=== PATIENT | male | born 1950 | race Caucasian/White ===

== ENCOUNTER → 2016-12-07 | Outpatient (REF) | payer MEDICARE ==
[~2016-12-07] MED LIST: /SYST15OP OU; ACET50TA PO; ADV250INH INH; ASPI1TAB24 PO; ASPI81TA4 PO; ATEN100T PO; BACIDCA PO; BUDE0.5S6 INH; CIPR500T89 PO; COMBIVENT INH; DRIS1CAP PO; DRIS50002 PO; FISH1000 PO; FISH100035 PO; HYDR25TAB PO; HYDR50TA2 PO; IPRASOL4 IN; LISI-538 PO; LISI5TAB PO; MIRT15TA3 PO; PRED10TA2 PO; SERT-141 PO; SERT50TA PO; TRAM50TA2 PO; TYLE500T78 PO; ULTR50TA PO; ZITH250T PO
[2016-12-07 12:57] LABS: MEAN CORPUSCULAR HEMOGLOBIN 30.2 pg (27.0-33.0); MEAN CORPUSCULAR HGB CONC 32.8 g/dl (32.0-36.5); RED CELL DISTRIBUTION WIDTH 13.2 % (11.5-14.5); WHITE BLOOD COUNT 8.3 K/mm3 (4.0-10.0)
[2016-12-07 13:22] LABS: ALBUMIN 3.7 GM/DL (3.2-5.2); ALBUMIN/GLOBULIN RATIO 1.19 (1.00-1.93); ALKALINE PHOSPHATASE 51 U/L (45-117); ALT/SGPT 29 U/L (12-78); ANION GAP 9 MEQ/L (8-16); AST/SGOT 16 U/L (15-37); BILIRUBIN,TOTAL 0.3 MG/DL (0.2-1.0); BLOOD UREA NITROGEN 20 MG/DL (7-18); CALCIUM LEVEL 8.9 MG/DL (8.8-10.2); CARBON DIOXIDE LEVEL 28 MEQ/L (21-32); CHLORIDE LEVEL 102 MEQ/L (98-107); CHOLESTEROL LEVEL 170 MG/DL (<200); CREATININE FOR GFR 0.89 MG/DL (0.70-1.30); FREE T4 1.13 NG/DL (0.76-1.46); GLOMERULAR FILTRATION RATE > 60.0 (>49); GLUCOSE, FASTING 91 MG/DL (80-110); POTASSIUM SERUM 4.1 MEQ/L (3.5-5.1); SODIUM LEVEL 139 MEQ/L (136-145); TOTAL PROTEIN 6.8 GM/DL (6.4-8.2); TRIGLYCERIDES LEVEL 195 MG/DL (<150)
== END ==
LOC: M SFHCADAM 08:24
PROVIDERS: ATTEND Family Medicine
DX: Z01.818 Encounter for other preprocedural examination (principal); H02.832 Dermatochalasis of right lower eyelid; H02.834 Dermatochalasis of left upper eyelid; H02.423 Myogenic ptosis of bilateral eyelids; F32.9 Major depressive disorder, single episode, unspecified; I11.9 Hypertensive heart disease without heart failure; E78.2 Mixed hyperlipidemia; Z12.5 Encounter for screening for malignant neoplasm of prostate; E55.9 Vitamin D deficiency, unspecified
CPT/HCPCS: 80053; 80061; 82306; 84439; 84443; 85027; G0103; G0463

== ENCOUNTER → 2016-12-19 | Day surgery (SDC) | payer MEDICARE ==
--- NOTE | 2016-12-18 10:36 | HPE ---
DATE OF ADMISSION: 12/19/2016 HISTORY AND CHIEF COMPLAINT: Mr. Apple is a 66-year-old, gentleman who has had a 2-3 year history of drooping of the eyelids, worse in the right eye than the left. The drooping is worse in the evening. He has to raise his eyebrows to open the eyelids. The drooping does not vary during the day. The droopy eyelids is interferring with his vision. 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 He has been admitted to have the levator aponeurosis resection, advancement and reattachment and blepharoplasty of both upper eyelids under local anesthetic with monitored sedation. PAST OCULAR HISTORY: Please see history of present illness, senile ectropion both lower eyelids, hypertensive retinopathy both eyes, pinguecula both eyes, dry eye syndrome both eyes. PAST MEDICAL HISTORY AND PREOPERATIVE MEDICAL EVALUATION: Please see the report by Dr. Vinayak Leyva. Hypertension, depression, chronic obstructive pulmonary disease (COPD), back pain, enlarged prostate, high cholesterol, impaired fasting glucose, pancreatitis, diverticulosis, hiatal hernia. Sleep apnea. MEDICATIONS: Please refer to the report by Dr. Vinayak Leyva. - aspirin 81 mg - Extra Strength Tylenol - Systane eye drops - oxygen 2 liters per minute - Zoloft - lisinopril - budesonide - albuterol inhaler - mirtazapine - hydrochlorothiazide - tramadol - Drisdol ALLERGIES: Please refer to the report by Dr. Vinayak Leyva, LATEX, PENICILLIN. FAMILY HISTORY: Positive for cataract and glaucoma with respect to eye disease on paternal side and cataract on maternal side. SOCIAL HISTORY: Please refer to the report by Dr. Vinayak Leyva. Smoker. On examination, vision without correction: Right eye: 20/30 +2, left eye: 20/30. Intraocular pressure by Goldmann tonometry: Both eyes: 16 mmHg. Pupils: Both eyes: Round, regular and reactive to light, 3 mm. Extraocular movements: Both eyes: Full, orthophoric on cover testing. External examination: Both eyes: Use of frontalis muscle +++. Involutional dermatochalasis upper eyelids and lower eyelids both eyes, margin to brow skin measurement: Right eye: 32 mm, left eye: 30 mm. 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 No lid lagophthalmos present. Myogenic ptosis upper eyelids both eyes. Marginal reflex distance: Right eye: 0 mm, left eye: 1 mm. Levator function: Both eyes: 12 mm. Sanz's phenomenon positive. Senile ectropion both lower eyelids. Slit lamp examination: Cornea: Both eyes: 1+ superficial punctate keratitis. Anterior chamber: Both eyes: Normal. Iris: Both eyes: Normal. Lens: Both eyes: Clear. Fundal examination: Disc: Both eyes: Normal. Macular: Both eyes: Normal. Visual arenas: Ptosis. Untaped superior visual field shows 30 degrees superior loss bilaterally. Taped superior visual field shows full visual arenas superiorly. IMPRESSION: 1. Myogenic ptosis upper eyelids both eyes, interfering with vision and visual field. 2. Involutional dermatochalasis upper and lower eyelids both eyes. 3. Senile ectropion both lower eyelids. 4. Floppy eyelid syndrome both eyes. PLAN: I discussed the findings with Mr. Apple. I mentioned to him that the drooping of the upper eyelids worse in the right eye than the left is interfering with the vision and the visual field. I recommended a levator aponeurosis resection, advancement and reattachment of both upper eyelids and a blepharoplasty of both upper eyelids. I discussed with him the procedure, benefit, expected outcomes, risks and alternatives to surgery. I mentioned that the risk of surgery includes but is not limited to surgery is not guaranteed, bleeding, infection, inflammation, scarring, overcorrection, undercorrection, recurrence, injury to the globe, extraocular muscles and the orbit causing impaired vision, impaired eye movement and vision. Mr. Apple elected to have the said surgery performed. I obtained an informed consent. I advised him to stop any aspirin type products and nonsteroidal anti-inflammatory medications [address] Vinayak Leyva will recommend his other preoperative and postoperative medications. [facility]
[~2016-12-19] VITALS: Ht 180.3 cm; Wt 192.8 kg
[~2016-12-19] MED LIST changes: +BUPIVACAINE 0.75% 10 ML VIAL As Ordered ONE; +CIPROFLOXACIN OPHTH 0.3% OINTMENT As Ordered ONE; +D5W/0.2% SODIUM CHLORIDE 250 ML IV ONE; +HYALURONIDASE 200 UNITS/ML VIAL (J3470) As Ordered ONE; +LABETALOL HCL 100 MG/20 ML VIAL As Ordered ONE; +LIDOCAINE 1% MDV 20ML VIAL As Ordered ONE; +LIDOCAINE 2% INJ 100 MG/5 ML SDV (FOR ANES.) As Ordered ONE; +LIDOCAINE W/EPINEPHRINE 1% 20ML VIAL As Ordered ONE; +MIDAZOLAM INJ 2 MG/2 ML VIAL (J2250) As Ordered ONE; +POVIDONE-IODINE 5% OPHTH PREP SOL 30ML As Ordered ONE; +PROPOFOL 200 MG/20 ML VIAL As Ordered ONE; +SODIUM BICARBONATE 8.4% INJ 50MEQ 50 ML VIAL As Ordered ONE; +TOBRADEX OPHTH OINT 3.5 GM As Ordered ONE; +dexameTHASONE 4 MG/ML 1ML VIAL (J1100) As Ordered ONE; +dexameTHASONE 4 MG/ML 1ML VIAL (J1100) IV ONE; +fentaNYL 100 MCG/2 ML INJECTION (J3010) As Ordered ONE
--- NOTE | 2016-12-19 09:29 | RO ---
DATE OF PROCEDURE: 12/19/2016 ROOM: Operating room. SURGEON: Jaswinder Reynolds MD [employer]: PREOPERATIVE DIAGNOSIS: 1. Myogenic ptosis upper eyelid both eyes, affecting vision and visual field. 2. Involutional dermatochalasis upper eyelid both eyes. POSTOPERATIVE DIAGNOSIS: 1. Myogenic ptosis upper eyelid both eyes, affecting vision and visual field. 2. Involutional dermatochalasis upper eyelid both eyes, fatty infiltration of levator muscle, Herings phenomenon positive. ANESTHESIA: Local with monitored sedation. OPERATIVE PROCEDURE: 1. Levator aponeurosis resection, advancement and reattachment of upper eyelid, both eyes. 2. Blepharoplasty upper eyelid, both eyes. DESCRIPTION OF OPERATION: The patient was brought into the operating room and positioned appropriately. A surgical marking pen was used to addie the upper lid crease height at 7 mm using a pair of calipers and then the upper incision line was marked leaving 20 mm of skin from the eyebrow to the lash line for both eyes. After adequate sedation, local anesthetic consisting of Xylocaine 1% mixed 50/50 with Marcaine 0.75% and epinephrine 1:200,000 with 0.5 mL of 8.4% sodium bicarbonate and 200 units of Vitrase per 10 mL of local anesthetic, 2.25 mL was injected subcutaneously along the incision lines and superior border of the tarsus of both upper eyelids. The full face was prepped with Betadine and draped in the usual sterile manner. A 6-0 silk traction suture was placed at the lid margin just nasal to the pupil for both upper eyelids. Both upper eyelids were retracted inferiorly. Starting with the right eye then followed by the left eye the skin incisions were made with a #15 blade. Good hemostasis was ensured throughout the procedure using bipolar cautery. The orbicularis muscle was identified and incised at the temporal margin and then dissected down to the suborbicularis plane for both upper eyelids. The myocutaneous flap was then excised from temporal to medial. The orbital septum was identified and incised just inferior to the superior orbital rim and the incision was extended medially and laterally. The medial and central orbital fat pads were identified and retracted to reveal the levator muscle and aponeurosis which was detached from its normal position on the superior tarsus for both upper eyelids. The levator muscle had fatty infiltration in both upper eyelids. The superior surface of the tarsus was exposed. A double-armed 5-0 nylon suture was used to reattach the levator aponeurosis to the tarsus for both upper eyelids. The sutures were tied temporarily. The patient was sat up and the lid margin contour and marginal reflex distance was checked for both upper eyelids. The 5-0 nylon suture was adjusted until the marginal reflex distance was 3 mm for both upper eyelids. The patient was then placed supine and the 5-0 nylon suture was tied and cut. Hemostasis was checked. The skin and orbicularis layer was then closed with interrupted and continuous 6-0 plain suture for both upper eyelids. There were no complications during the surgery. At the end of the procedure, a combination of Ciloxan ophthalmic ointment mixed with TobraDex ophthalmic ointment was applied to the incision and the sutures. A cold saline compress was placed over the closed both upper eyelid. The patient left for the recovery room in good condition. Specimens were sent to pathology. [facility]
[2016-12-19 10:15] VITALS: BP 133/71
== END | disposition home or self-care (01) ==
LOC: M SDC 06:23
PROVIDERS: ATTEND Ophthalmology
DX: H02.423 Myogenic ptosis of bilateral eyelids (principal); H02.834 Dermatochalasis of left upper eyelid; H02.831 Dermatochalasis of right upper eyelid; H02.135 Senile ectropion of left lower eyelid; H02.132 Senile ectropion of right lower eyelid; H02.89 Other specified disorders of eyelid; H35.033 Hypertensive retinopathy, bilateral; H04.123 Dry eye syndrome of bilateral lacrimal glands; H11.153 Pinguecula, bilateral; I11.9 Hypertensive heart disease without heart failure; J44.9 Chronic obstructive pulmonary disease, unspecified; E74.9 Disorder of carbohydrate metabolism, unspecified; E55.9 Vitamin D deficiency, unspecified; Z68.44 Body mass index [BMI] 60.0-69.9, adult; E78.00 Pure hypercholesterolemia, unspecified; R73.01 Impaired fasting glucose; F32.9 Major depressive disorder, single episode, unspecified; N40.0 Benign prostatic hyperplasia without lower urinary tract symptoms; G47.30 Sleep apnea, unspecified; M54.9 Dorsalgia, unspecified; K57.90 Diverticulosis of intestine, part unspecified, without perforation or abscess without bleeding; M19.90 Unspecified osteoarthritis, unspecified site; Z88.8 Allergy status to other drugs, medicaments and biological substances; Z88.0 Allergy status to penicillin; Z91.040 Latex allergy status; Z79.899 Other long term (current) drug therapy; Z79.82 Long term (current) use of aspirin; Z79.51 Long term (current) use of inhaled steroids; F17.210 Nicotine dependence, cigarettes, uncomplicated
CPT/HCPCS: 15823; 67904; 88302; J1100; J2250; J3010; J3470

== ENCOUNTER → 2017-04-18 | Outpatient (CLI) | payer MEDICARE ==
[~2017-04-18] MED LIST changes: +ASPI-161 PO; -ASPI1TAB24 PO; -BUPIVACAINE 0.75% 10 ML VIAL As Ordered ONE; -CIPROFLOXACIN OPHTH 0.3% OINTMENT As Ordered ONE; -D5W/0.2% SODIUM CHLORIDE 250 ML IV ONE; -HYALURONIDASE 200 UNITS/ML VIAL (J3470) As Ordered ONE; -LABETALOL HCL 100 MG/20 ML VIAL As Ordered ONE; -LIDOCAINE 1% MDV 20ML VIAL As Ordered ONE; -LIDOCAINE 2% INJ 100 MG/5 ML SDV (FOR ANES.) As Ordered ONE; -LIDOCAINE W/EPINEPHRINE 1% 20ML VIAL As Ordered ONE; -MIDAZOLAM INJ 2 MG/2 ML VIAL (J2250) As Ordered ONE; -POVIDONE-IODINE 5% OPHTH PREP SOL 30ML As Ordered ONE; -PROPOFOL 200 MG/20 ML VIAL As Ordered ONE; -SODIUM BICARBONATE 8.4% INJ 50MEQ 50 ML VIAL As Ordered ONE; -TOBRADEX OPHTH OINT 3.5 GM As Ordered ONE; -dexameTHASONE 4 MG/ML 1ML VIAL (J1100) As Ordered ONE; -dexameTHASONE 4 MG/ML 1ML VIAL (J1100) IV ONE; -fentaNYL 100 MCG/2 ML INJECTION (J3010) As Ordered ONE
--- NOTE | 2017-04-18 11:51 | REP ---
Clinical: Right hip pain. Technique: Neutral and frog lateral views of the right hip. Findings: The patient is noted to be status post right hip replacement. Normal appearance and positioning to the femoral and acetabular components. No acute fracture or dislocation. Surrounding soft tissues are normal. Impression: Normal right hip radiograph series. No acute fracture dislocation. Signed by Jah Wright MD 04/18/2017 11:43 A
--- NOTE | 2017-04-18 11:52 | REP ---
Clinical: Left rib pain Technique: Frontal view of the chest with multiple views of the left hemithorax. Findings: Frontal view of the chest demonstrates no acute cardiopulmonary process. Multiple views of the left hemithorax demonstrates no obvious acute rib fracture or pathology. Impression: Normal left rib series Signed by Jah Wright MD 04/18/2017 11:44 A
== END ==
LOC: M ADAMS 09:21
PROVIDERS: ATTEND Family Medicine
DX: R07.81 Pleurodynia (principal); Z96.641 Presence of right artificial hip joint; I11.9 Hypertensive heart disease without heart failure; E78.2 Mixed hyperlipidemia; E32.9 Disease of thymus, unspecified; E74.9 Disorder of carbohydrate metabolism, unspecified; J44.9 Chronic obstructive pulmonary disease, unspecified; Z68.44 Body mass index [BMI] 60.0-69.9, adult; F17.200 Nicotine dependence, unspecified, uncomplicated; Z12.5 Encounter for screening for malignant neoplasm of prostate
CPT/HCPCS: 71101; 73502; 80048; 82495; 83018; G0463

== ENCOUNTER → 2017-04-18 | Outpatient (REF) | payer MEDICARE ==
[2017-04-19 13:37] LABS: ANION GAP 8 MEQ/L (8-16); BLOOD UREA NITROGEN 19 MG/DL (7-18); CALCIUM LEVEL 9.3 MG/DL (8.8-10.2); CARBON DIOXIDE LEVEL 30 MEQ/L (21-32); CHLORIDE LEVEL 102 MEQ/L (98-107); CREATININE FOR GFR 0.89 MG/DL (0.70-1.30); GLOMERULAR FILTRATION RATE > 60.0 (>49); GLUCOSE, FASTING 100 MG/DL (80-110); POTASSIUM SERUM 4.2 MEQ/L (3.5-5.1); SODIUM LEVEL 140 MEQ/L (136-145)
[2017-05-05 08:16] LABS: CHROMIUM, WB 5.1 ng/mL (<3.0); COBALT, WB 24.6 ng/mL (<3.0)
== END ==
LOC: M SFHCADAM 09:15
PROVIDERS: ATTEND Family Medicine
DX: I11.9 Hypertensive heart disease without heart failure (principal); F32.9 Major depressive disorder, single episode, unspecified; R07.81 Pleurodynia; E78.2 Mixed hyperlipidemia; E74.9 Disorder of carbohydrate metabolism, unspecified; J44.9 Chronic obstructive pulmonary disease, unspecified; F17.200 Nicotine dependence, unspecified, uncomplicated; Z12.5 Encounter for screening for malignant neoplasm of prostate; Z96.641 Presence of right artificial hip joint; Z79.82 Long term (current) use of aspirin; Z79.899 Other long term (current) drug therapy

== ENCOUNTER → 2017-09-01 | Outpatient (REF) | payer MEDICARE ==
[2017-09-01 13:31] LABS: HEMATOCRIT 41.1 % (42.0-52.0); HEMOGLOBIN 13.4 g/dl (14.0-18.0); MEAN CORPUSCULAR HEMOGLOBIN 29.6 pg (27.0-33.0); MEAN CORPUSCULAR HGB CONC 32.6 g/dl (32.0-36.5); MEAN CORPUSCULAR VOLUME 90.7 fl (80.0-96.0); PLATELET COUNT, AUTOMATED 196 10^3/uL (150-450); RED BLOOD COUNT 4.53 10^6/uL (4.30-6.10); RED CELL DISTRIBUTION WIDTH 13.1 % (11.5-14.5); WHITE BLOOD COUNT 6.7 10^3/uL (4.0-10.0)
[2017-09-01 14:11] LABS: ALBUMIN 3.8 GM/DL (3.2-5.2); ALBUMIN/GLOBULIN RATIO 1.19 (1.00-1.93); ALKALINE PHOSPHATASE 51 U/L (45-117); ALT/SGPT 28 U/L (12-78); ANION GAP 10 MEQ/L (8-16); AST/SGOT 16 U/L (7-37); BILIRUBIN,TOTAL 0.4 MG/DL (0.2-1.0); BLOOD UREA NITROGEN 22 MG/DL (7-18); CALCIUM LEVEL 9.1 MG/DL (8.8-10.2); CARBON DIOXIDE LEVEL 27 MEQ/L (21-32); CHLORIDE LEVEL 103 MEQ/L (98-107); CHOLESTEROL LEVEL 159 MG/DL (<200); CHOLESTEROL RISK RATIO 3.975 (<5); CREATININE FOR GFR 0.92 MG/DL (0.70-1.30); FREE T4 1.19 NG/DL (0.76-1.46); GLOMERULAR FILTRATION RATE > 60.0 (>49); GLUCOSE, FASTING 112 MG/DL (80-110); HDL CHOLESTEROL 40 MG/DL (>40); LDL CHOLESTEROL 94.8 MG/DL (<100); NON-HDL-C 119 MG/DL; POTASSIUM SERUM 4.2 MEQ/L (3.5-5.1); SODIUM LEVEL 140 MEQ/L (136-145); THYROID STIMULATING HORMONE 0.816 uIU/ML (0.358-3.740); TRIGLYCERIDES LEVEL 121 MG/DL (<150)
[2017-09-01 15:21] LABS: ESTIMATED AVERAGE GLUCOSE 117 MG/DL (60-110); HEMOGLOBIN A1c 5.7 %
== END ==
LOC: M SFHCADAM 10:06
DX: F32.9 Major depressive disorder, single episode, unspecified (principal); I11.9 Hypertensive heart disease without heart failure; E74.9 Disorder of carbohydrate metabolism, unspecified; E78.2 Mixed hyperlipidemia; R73.01 Impaired fasting glucose
CPT/HCPCS: 84443

== ENCOUNTER → 2018-10-25 | Outpatient (REF) | payer MEDICARE ==
[~2018-10-25] MED LIST changes: -DRIS50002 PO; +DRIS50003 PO; +IPRA0.00 IN; -IPRASOL4 IN
[2018-10-25 12:35] LABS: HEMATOCRIT 43.5 % (42.0-52.0); HEMOGLOBIN 14.3 g/dl (13.5-17.5); MEAN CORPUSCULAR HEMOGLOBIN 29.9 pg (27.0-33.0); MEAN CORPUSCULAR HGB CONC 32.9 g/dl (32.0-36.5); PLATELET COUNT, AUTOMATED 209 10^3/uL (150-450); RED BLOOD COUNT 4.78 10^6/uL (4.30-6.10); WHITE BLOOD COUNT 8.1 10^3/uL (4.0-10.0)
[2018-10-25 13:20] LABS: ALBUMIN 4.1 GM/DL (3.2-5.2); ALT/SGPT 30 U/L (12-78); BILIRUBIN,TOTAL 0.4 MG/DL (0.2-1.0); BLOOD UREA NITROGEN 23 MG/DL (7-18); CALCIUM LEVEL 9.5 MG/DL (8.8-10.2); CARBON DIOXIDE LEVEL 28 MEQ/L (21-32); CHLORIDE LEVEL 103 MEQ/L (98-107); CHOLESTEROL LEVEL 180 MG/DL (<200); CREATININE FOR GFR 0.96 MG/DL (0.70-1.30); GLOMERULAR FILTRATION RATE > 60.0 (>49); GLUCOSE, FASTING 92 MG/DL (70-100); HDL CHOLESTEROL 41 MG/DL (>40); LDL CHOLESTEROL 115 MG/DL (<100); NON-HDL-C 139 MG/DL; POTASSIUM SERUM 4.9 MEQ/L (3.5-5.1); SODIUM LEVEL 139 MEQ/L (136-145); TOTAL 25(OH) VITAMIN D 44.2 NG/ML (30.0-100.0); TOTAL PROTEIN 7.3 GM/DL (6.4-8.2); TRIGLYCERIDES LEVEL 118 MG/DL (<150)
[2018-10-25 13:27] LABS: HEMOGLOBIN A1c 5.5 %
== END ==
LOC: M SFHCADAM 10:08
PROVIDERS: ATTEND Family Medicine
DX: F32.9 Major depressive disorder, single episode, unspecified (principal); I11.9 Hypertensive heart disease without heart failure; E74.9 Disorder of carbohydrate metabolism, unspecified; E78.2 Mixed hyperlipidemia; Z12.5 Encounter for screening for malignant neoplasm of prostate; E55.9 Vitamin D deficiency, unspecified
CPT/HCPCS: 80053; 80061; 82306; 83036; 85027; G0103; G0463

== ENCOUNTER → 2019-05-09 | Outpatient (CLI) | payer MEDICARE ==
[~2019-05-09] MED LIST changes: -/SYST15OP OU; -ACET50TA PO; +MAPA500T17 PO; -SERT50TA PO; +SYST1SOL OU
--- NOTE | 2019-05-09 12:37 | REP ---
PA and lateral chest four views including two PA and two lateral views: Comparison is 06/05/2014. The lung arenas are hyperinflated, as previously. There are thin curvilinear parenchymal scars inferiorly in the right lung, unchanged. There are no infiltrates or pleural effusions. Lung arenas otherwise clear. Cardiac size is normal. The macario, mediastinum, skeletal structures are unremarkable. Impression: Chronic hyperinflation. Chronic parenchymal scarring in the right lung inferiorly. Otherwise, negative PA and lateral chest. Electronically Signed by Bradford Miller MD 05/09/2019 12:28 P
== END ==
LOC: M ADAMS 12:04
PROVIDERS: ATTEND Physician Assistant Medical
DX: R06.02 Shortness of breath (principal)
CPT/HCPCS: 71046; 94640; 96372; G0463; J1040

== ENCOUNTER → 2019-10-22 | Outpatient (REF) | payer MEDICARE ==
[2019-10-22 13:26] LABS: HEMATOCRIT 43.5 % (42.0-52.0); MEAN CORPUSCULAR HEMOGLOBIN 29.5 pg (27.0-33.0); MEAN CORPUSCULAR HGB CONC 32.2 g/dl (32.0-36.5); MEAN CORPUSCULAR VOLUME 91.8 fl (80.0-96.0); PLATELET COUNT, AUTOMATED 196 10^3/uL (150-450); RED BLOOD COUNT 4.74 10^6/uL (4.30-6.10); WHITE BLOOD COUNT 6.6 10^3/uL (4.0-10.0)
[2019-10-22 14:09] LABS: ALBUMIN 3.8 GM/DL (3.2-5.2); ALT/SGPT 32 U/L (12-78); BILIRUBIN,TOTAL 0.4 MG/DL (0.2-1.0); BLOOD UREA NITROGEN 23 MG/DL (7-18); CALCIUM LEVEL 8.9 MG/DL (8.8-10.2); CARBON DIOXIDE LEVEL 31 MEQ/L (21-32); CHLORIDE LEVEL 103 MEQ/L (98-107); CHOLESTEROL LEVEL 170 MG/DL (<200); CHOLESTEROL RISK RATIO 4.722 (<5); CREATININE FOR GFR 0.84 MG/DL (0.70-1.30); FREE T4 1.21 NG/DL (0.76-1.46); GLOMERULAR FILTRATION RATE > 60.0 (>49); GLUCOSE, FASTING 95 MG/DL (70-100); HDL CHOLESTEROL 36 MG/DL (>40); LDL CHOLESTEROL 99 MG/DL (<100); NON-HDL-C 134 MG/DL; POTASSIUM SERUM 4.2 MEQ/L (3.5-5.1); SODIUM LEVEL 139 MEQ/L (136-145); THYROID STIMULATING HORMONE 0.937 uIU/ML (0.358-3.740); TOTAL PROTEIN 6.9 GM/DL (6.4-8.2); TRIGLYCERIDES LEVEL 174 MG/DL (<150)
== END ==
LOC: M SFHCADAM 08:47
PROVIDERS: ATTEND Family Medicine
DX: I11.9 Hypertensive heart disease without heart failure (principal); J44.9 Chronic obstructive pulmonary disease, unspecified; F32.9 Major depressive disorder, single episode, unspecified; E78.2 Mixed hyperlipidemia; Z68.44 Body mass index [BMI] 60.0-69.9, adult; Z12.5 Encounter for screening for malignant neoplasm of prostate
CPT/HCPCS: 80053; 80061; 84439; 84443; 85027; G0103; G0463

== ENCOUNTER → 2021-10-29 | Outpatient (CLI) | payer MEDICARE ==
[~2021-10-29] MED LIST changes: +HYDR-3490 PO; -HYDR25TAB PO; -LISI-538 PO; +LISI20TA33 PO
== END ==
LOC: M RAD 09:45
PROVIDERS: ATTEND Internal Medicine Pulmonary Disease
DX: Z87.891 Personal history of nicotine dependence (principal)

== ENCOUNTER → 2022-05-18 | Outpatient (REF) | payer MEDICARE ==
[2022-05-18 13:21] LABS: HEMATOCRIT 46.3 % (42.0-52.0); MEAN CORPUSCULAR HEMOGLOBIN 30.1 pg (27.0-33.0); MEAN CORPUSCULAR HGB CONC 32.4 g/dl (32.0-36.5); MEAN CORPUSCULAR VOLUME 92.8 fl (80.0-96.0); PLATELET COUNT, AUTOMATED 218 10^3/uL (150-450); RED BLOOD COUNT 4.99 10^6/uL (4.30-6.10); WHITE BLOOD COUNT 8.9 10^3/uL (4.0-10.0)
[2022-05-18 15:20] LABS: ALBUMIN 3.9 GM/DL (3.2-5.2); ALT/SGPT 30 U/L (12-78); BILIRUBIN,TOTAL 0.5 MG/DL (0.2-1.0); BLOOD UREA NITROGEN 22 MG/DL (7-18); CALCIUM LEVEL 9.8 MG/DL (8.8-10.2); CARBON DIOXIDE LEVEL 28 MEQ/L (21-32); CHLORIDE LEVEL 101 MEQ/L (98-107); CHOLESTEROL LEVEL 192 MG/DL (<200); CHOLESTEROL RISK RATIO 4.465 (<5); CREATININE FOR GFR 0.98 MG/DL (0.70-1.30); FREE T4 1.19 NG/DL (0.76-1.46); GLOMERULAR FILTRATION RATE > 60.0 (>42); GLUCOSE, FASTING 105 MG/DL (70-100); HDL CHOLESTEROL 43 MG/DL (>40); LDL CHOLESTEROL 120 MG/DL (<100); NON-HDL-C 149 MG/DL; POTASSIUM SERUM 4.7 MEQ/L (3.5-5.1); SODIUM LEVEL 134 MEQ/L (136-145); TOTAL PROTEIN 7.4 GM/DL (6.4-8.2); TRIGLYCERIDES LEVEL 145 MG/DL (<150)
[2022-05-18 15:36] LABS: HEMOGLOBIN A1c 5.2 %
[2022-05-18 17:00] LABS: TOTAL 25(OH) VITAMIN D 52.4 NG/ML (30.0-100.0)
== END ==
LOC: M SFHCADAM 09:44
PROVIDERS: ATTEND Family Medicine
DX: F32.9 Major depressive disorder, single episode, unspecified (principal); I11.9 Hypertensive heart disease without heart failure; E78.2 Mixed hyperlipidemia; E55.9 Vitamin D deficiency, unspecified; Z13.1 Encounter for screening for diabetes mellitus; Z12.5 Encounter for screening for malignant neoplasm of prostate; Z79.891 Long term (current) use of opiate analgesic
CPT/HCPCS: 80053; 80061; 80307; 82306; 83036; 84439; 84443; 85027; G0103

== ENCOUNTER → 2022-06-15 | Outpatient (CLI) | payer MEDICARE | LOC: M CARPUL 13:55 | PROVIDERS: ATTEND Family Medicine | DX: R01.1 Cardiac murmur, unspecified (principal) ==

== ENCOUNTER → 2022-11-23 | Outpatient (REF) | payer MEDICARE ==
[2022-11-23 13:24] LABS: BLOOD UREA NITROGEN 18 MG/DL (9-23); CALCIUM LEVEL 9.2 MG/DL (8.3-10.6); CARBON DIOXIDE LEVEL 30 MMOL/L (20-31); CHLORIDE LEVEL 102 MMOL/L (98-107); CREATININE FOR GFR 0.84 MG/DL (0.70-1.30); GLOMERULAR FILTRATION RATE > 60.0 (>42); GLUCOSE, FASTING 87 MG/DL (74-106); SODIUM LEVEL 137 MMOL/L (136-145)
== END ==
LOC: M SFHCADAM 10:48
PROVIDERS: ATTEND Family Medicine
DX: I11.9 Hypertensive heart disease without heart failure (principal)

== ENCOUNTER → 2022-12-23 | Outpatient (CLI) | payer MEDICARE | LOC: M RAD 13:07 | PROVIDERS: ATTEND Internal Medicine Pulmonary Disease | DX: Z12.2 Encounter for screening for malignant neoplasm of respiratory organs (principal); F17.218 Nicotine dependence, cigarettes, with other nicotine-induced disorders ==

== ENCOUNTER 2023-02-06 10:42 | Inpatient (IN) | payer MEDICARE ==
[~2023-02-06] VITALS: Ht 177.8 cm; Wt 175.6 kg
[~2023-02-06 10:42] MED LIST changes: -IPRA0.00 IN; +IPRA0.00 NEB
[2023-02-06 11:58] LABS: BASO % 0.6 % (0.0-1.0); EOS # 0.1 10^3/uL (0.0-0.5); EOS % 2.4 % (0.0-3.0); HEMATOCRIT 40.7 % (42.0-52.0); HEMOGLOBIN 13.2 g/dl (13.5-17.5); LYMPH # 1.5 10^3/uL (1.5-5.0); LYMPH % 28.3 % (24.0-44.0); MEAN CORPUSCULAR HEMOGLOBIN 29.7 pg (27.0-33.0); MEAN CORPUSCULAR HGB CONC 32.4 g/dl (32.0-36.5); MEAN CORPUSCULAR VOLUME 91.5 fl (80.0-96.0); MONO # 0.3 10^3/uL (0.0-0.8); MONO % 5.9 % (2.0-8.0); NEUTROPHILS # 3.4 10^3/uL (1.5-8.5); NEUTROPHILS % 62.6 % (36.0-66.0); PLATELET COUNT, AUTOMATED 166 10^3/uL (150-450); RED BLOOD COUNT 4.45 10^6/uL (4.30-6.10); WHITE BLOOD COUNT 5.4 10^3/uL (4.0-10.0)
[2023-02-06 12:20] LABS: ALBUMIN 3.6 G/DL (3.2-5.2); ALKALINE PHOSPHATASE 58 U/L (46-116); ALT/SGPT 18 U/L (7.0-40); AST/SGOT 12 U/L (<34); BILIRUBIN,DIRECT 0.2 MG/DL (<0.4); BILIRUBIN,TOTAL 0.6 MG/DL (0.3-1.2); BLOOD UREA NITROGEN 21 MG/DL (9-23); CARBON DIOXIDE LEVEL 29 MMOL/L (20-31); CHLORIDE LEVEL 106 MMOL/L (98-107); CK-MB VALUE MASS 1.2 NG/ML (<3.6); CPK CREATINE PHOSPHOKINASE 83 U/L (46-171); CREATININE FOR GFR 0.86 MG/DL (0.70-1.30); GLOMERULAR FILTRATION RATE > 60.0 (>42); GLUCOSE, FASTING 92 MG/DL (74-106); MB/CK RELATIVE INDEX 1.44 (< OR =4); POTASSIUM SERUM 3.8 MMOL/L (3.5-5.1); SODIUM LEVEL 141 MMOL/L (136-145); TOTAL PROTEIN 6.3 G/DL (5.7-8.2)
[2023-02-06 12:22] LABS: THYROID STIMULATING HORMONE 1.078 uIU/ML (0.55-4.78); THYROXINE (T4) 12.4 UG/DL (4.5-10.9)
[2023-02-06 12:28] LABS: RSV AMPLIFICATION NEGATIVE (NEGATIVE)
[2023-02-06] MEDS ORDERED: FUROSEMIDE 40MG/4ML VIAL IV ONE (12:40)
[2023-02-06] MEDS ORDERED: methylPREDNISolone 125MG 2ML VIAL IV ONE (12:40)
[2023-02-06] MEDS ORDERED: IPRATROPIUM 0.5MG/ALBUTEROL 2.5MG INH SOL UD 3ML (DUONEB) NEB PRN (12:40)
[2023-02-06 13:10] LABS: CK-MB VALUE MASS 1.3 NG/ML (<3.6)
[2023-02-06 13:16] LABS: MB/CK RELATIVE INDEX 1.71 (< OR =4)
[2023-02-06 13:23] LABS: ABG HCO3 26.8 MMOL/L (22.0-26.0); ABG O2 SATURATION 92.5 % (95.0-99.0); ABG PARTIAL PRESSURE CO2 42.7 mmHg (35.0-45.0); ABG PARTIAL PRESSURE O2 61.7 mmHg (75.0-100.0); ABG STANDARD HCO3 26.1 MMOL/L. (22.0-26.0); ABG TOTAL CO2 28.1 MMOL/L (23.0-31.0); ABG pH (ARTERIAL) 7.416 UNITS (7.350-7.450)
[2023-02-06] MEDS ORDERED: MED REC IN PROGRESS XX SCH (14:00)
[2023-02-06] MEDS ORDERED: MIRT-62 PO (14:20)
[2023-02-06] MEDS ORDERED: ACET500T15 PO (14:20)
[2023-02-06] MEDS ORDERED: TAMS1CAP17 PO (14:20)
[2023-02-06] MEDS ORDERED: ACET-839 PO (14:20)
[2023-02-06] MEDS ORDERED: ERGO500029 PO (14:20)
[2023-02-06] MEDS ORDERED: ZOLO100T PO (14:20)
[2023-02-06] MEDS ORDERED: ASPI81TA26 PO (14:20)
[2023-02-06] MEDS ORDERED: HOME MED LIST COMPLETE! XX SCH (14:25)
[2023-02-06] MEDS: IPRATROPIUM 0.5MG/ALBUTEROL 2.5MG INH SOL UD 3ML (DUONEB) NEB SCH ×2 (14:47→21:08)
[2023-02-06 16:15] VITALS: BP 157/78; TEMP 97.7; O2SAT 92
[2023-02-06 16:37] LABS: PROCALCITONIN <0.04 ng/ml
[2023-02-06] MEDS: methylPREDNISolone 40MG 1ML VIAL IV SCH (18:10)
[2023-02-06] MEDS: AZITHROMYCIN 250MG TABLET PO SCH (18:11)
[2023-02-06 19:39] VITALS: BP 122/73; TEMP 97.2; O2SAT 94
[2023-02-06] MEDS ORDERED: BUDESONIDE 180MCG INHALER (PULMICORT FLEXHALER) INH SCH (20:00)
[2023-02-06] MEDS: MIRTAZAPINE 15 MG TAB PO SCH (20:40)
[2023-02-06] MEDS: ACETAMINOPHEN 500 MG TAB PO SCH (20:41)
[2023-02-06] MEDS: TAMSULOSIN 0.4 MG CAP PO SCH (20:42)
[2023-02-06] MEDS: SERTRALINE 100 MG TAB PO SCH (20:42)
[2023-02-06] MEDS: traMADol 50 MG TAB PO SCH (20:42)
[2023-02-06] MEDS: ENOXAPARIN 60MG/0.6ML SYRINGE (J1650 PER 10MG) SC SCH (20:42)
[2023-02-06] MEDS: BUDESONIDE 0.5 MG/2 ML INHALATION SUSPENSION INH SCH (21:08)
[2023-02-07] MEDS ORDERED: FUROSEMIDE 40MG/4ML VIAL IV SCH
[2023-02-07] MEDS: methylPREDNISolone 40MG 1ML VIAL IV SCH ×3 (00:01→13:29)
[2023-02-07] MEDS: IPRATROPIUM 0.5MG/ALBUTEROL 2.5MG INH SOL UD 3ML (DUONEB) NEB SCH ×7 (01:24→23:59)
[2023-02-07 05:27] VITALS: BP 114/71; TEMP 98.1; O2SAT 93
[2023-02-07 06:05] LABS: HEMATOCRIT 42.6 % (42.0-52.0); HEMOGLOBIN 13.9 g/dl (13.5-17.5); MEAN CORPUSCULAR HEMOGLOBIN 29.9 pg (27.0-33.0); MEAN CORPUSCULAR HGB CONC 32.6 g/dl (32.0-36.5); MEAN CORPUSCULAR VOLUME 91.6 fl (80.0-96.0); PLATELET COUNT, AUTOMATED 174 10^3/uL (150-450); RED BLOOD COUNT 4.65 10^6/uL (4.30-6.10); WHITE BLOOD COUNT 5.6 10^3/uL (4.0-10.0)
[2023-02-07 06:22] LABS: BLOOD UREA NITROGEN 24 MG/DL (9-23); CALCIUM LEVEL 9.1 MG/DL (8.3-10.6); CARBON DIOXIDE LEVEL 28 MMOL/L (20-31); CHLORIDE LEVEL 102 MMOL/L (98-107); CREATININE FOR GFR 0.84 MG/DL (0.70-1.30); GLOMERULAR FILTRATION RATE > 60.0 (>42); GLUCOSE, FASTING 131 MG/DL (74-106); MAGNESIUM LEVEL 1.8 MG/DL (1.8-2.4); POTASSIUM SERUM 3.9 MMOL/L (3.5-5.1); SODIUM LEVEL 140 MMOL/L (136-145)
[2023-02-07] MEDS: BUDESONIDE 0.5 MG/2 ML INHALATION SUSPENSION INH SCH ×2 (07:35→20:26)
[2023-02-07] MEDS ORDERED: ALBUTEROL SULFATE 2.5MG/0.5ML INH NEB SOLN NEB PRN (07:50)
[2023-02-07] MEDS ORDERED: VANCOMYCIN HCL 1,000 MG, VIAL MATE ADAPTER 1 EACH in D5W 250 ML IV ONE ×2 (08:00→09:00)
[2023-02-07] MEDS: ACETAMINOPHEN 500 MG TAB PO SCH ×2 (08:45→21:34)
[2023-02-07 08:46] VITALS: BP 107/53
[2023-02-07] MEDS: ENOXAPARIN 60MG/0.6ML SYRINGE (J1650 PER 10MG) SC SCH ×2 (08:46→21:32)
[2023-02-07] MEDS: SERTRALINE 100 MG TAB PO SCH ×2 (08:46→21:34)
[2023-02-07] MEDS: ASPIRIN 81MG ENTERIC TABLET PO SCH (08:46)
[2023-02-07] MEDS: traMADol 50 MG TAB PO SCH ×2 (08:46→21:34)
[2023-02-07] MEDS ORDERED: ENOXAPARIN 40MG/0.4ML SYRINGE (J1650 PER 10MG) SC SCH (09:00)
[2023-02-07] MEDS: FUROSEMIDE 40MG/4ML VIAL IV SCH ×3 (11:26→23:35)
[2023-02-07 11:28] VITALS: BP 101/60
[2023-02-07 14:00] VITALS: BP 120/60; TEMP 98.1; O2SAT 91; O2SAT 93
[2023-02-07] MEDS ORDERED: methylPREDNISolone 40MG 1ML VIAL IV SCH (14:00)
[2023-02-07] MEDS: VANCOMYCIN HCL 1,000 MG, VIAL MATE ADAPTER 1 EACH in D5W 250 ML IV SCH (17:06)
[2023-02-07] MEDS: AZITHROMYCIN 250MG TABLET PO SCH (17:07)
[2023-02-07 19:34] VITALS: BP 118/67; TEMP 98.2; O2SAT 93
[2023-02-07] MEDS: TAMSULOSIN 0.4 MG CAP PO SCH (21:33)
[2023-02-07] MEDS: RAMELTEON 8 MG TAB (ROZEREM) PO SCH (21:34)
[2023-02-07] MEDS: MIRTAZAPINE 15 MG TAB PO SCH (21:34)
[2023-02-08] MEDS: VANCOMYCIN HCL 1,000 MG, VIAL MATE ADAPTER 1 EACH in D5W 250 ML IV SCH ×3 (00:48→17:33)
[2023-02-08] MEDS: methylPREDNISolone 40MG 1ML VIAL IV SCH ×2 (02:12→13:08)
[2023-02-08] MEDS: IPRATROPIUM 0.5MG/ALBUTEROL 2.5MG INH SOL UD 3ML (DUONEB) NEB SCH ×6 (03:16→23:30)
[2023-02-08 06:28] LABS: HEMATOCRIT 42.7 % (42.0-52.0); HEMOGLOBIN 13.7 g/dl (13.5-17.5); MEAN CORPUSCULAR HEMOGLOBIN 29.4 pg (27.0-33.0); MEAN CORPUSCULAR HGB CONC 32.1 g/dl (32.0-36.5); MEAN CORPUSCULAR VOLUME 91.6 fl (80.0-96.0); PLATELET COUNT, AUTOMATED 187 10^3/uL (150-450); RED BLOOD COUNT 4.66 10^6/uL (4.30-6.10); WHITE BLOOD COUNT 9.6 10^3/uL (4.0-10.0)
[2023-02-08 06:42] LABS: ALBUMIN 3.8 G/DL (3.2-5.2); ALKALINE PHOSPHATASE 53 U/L (46-116); ALT/SGPT < 9 U/L (7.0-40); AST/SGOT < 8 U/L (<34); BILIRUBIN,TOTAL 0.6 MG/DL (0.3-1.2); BLOOD UREA NITROGEN 41 MG/DL (9-23); CALCIUM LEVEL 9.2 MG/DL (8.3-10.6); CARBON DIOXIDE LEVEL 31 MMOL/L (20-31); CHLORIDE LEVEL 101 MMOL/L (98-107); CREATININE FOR GFR 1.05 MG/DL (0.70-1.30); GLOMERULAR FILTRATION RATE > 60.0 (>42); GLUCOSE, FASTING 105 MG/DL (74-106); POTASSIUM SERUM 3.9 MMOL/L (3.5-5.1); SODIUM LEVEL 140 MMOL/L (136-145); TOTAL PROTEIN 6.4 G/DL (5.7-8.2)
[2023-02-08] MEDS: BUDESONIDE 0.5 MG/2 ML INHALATION SUSPENSION INH SCH ×2 (07:32→19:15)
[2023-02-08] MEDS: SERTRALINE 100 MG TAB PO SCH ×2 (08:45→20:06)
[2023-02-08] MEDS: ASPIRIN 81MG ENTERIC TABLET PO SCH (08:45)
[2023-02-08] MEDS: traMADol 50 MG TAB PO SCH ×2 (08:45→20:07)
[2023-02-08] MEDS: ACETAMINOPHEN 500 MG TAB PO SCH ×2 (08:46→20:06)
[2023-02-08] MEDS: ENOXAPARIN 60MG/0.6ML SYRINGE (J1650 PER 10MG) SC SCH ×2 (08:46→20:07)
[2023-02-08] MEDS: FUROSEMIDE 40MG/4ML VIAL IV SCH (13:08)
[2023-02-08 14:00] VITALS: BP 96/32; TEMP 98.1; O2SAT 91
[2023-02-08 14:14] VITALS: BP 98/50
[2023-02-08] MEDS: AZITHROMYCIN 250MG TABLET PO SCH (17:33)
[2023-02-08] MEDS: TAMSULOSIN 0.4 MG CAP PO SCH (20:06)
[2023-02-08] MEDS: MIRTAZAPINE 15 MG TAB PO SCH (20:06)
[2023-02-08] MEDS: RAMELTEON 8 MG TAB (ROZEREM) PO SCH (20:08)
[2023-02-08 22:00] VITALS: BP 110/57; TEMP 98.2; O2SAT 94
[2023-02-08 22:36] VITALS: TEMP 98.1
[2023-02-09 00:29] VITALS: BP 112/44
[2023-02-09] MEDS: VANCOMYCIN HCL 1,000 MG, VIAL MATE ADAPTER 1 EACH in D5W 250 ML IV SCH (00:37)
[2023-02-09] MEDS: FUROSEMIDE 40MG/4ML VIAL IV SCH (00:37)
[2023-02-09] MEDS: IPRATROPIUM 0.5MG/ALBUTEROL 2.5MG INH SOL UD 3ML (DUONEB) NEB SCH ×2 (04:14→07:25)
[2023-02-09 06:00] VITALS: BP 130/70; TEMP 97.5; O2SAT 91
[2023-02-09 06:03] LABS: HEMATOCRIT 44.3 % (42.0-52.0); HEMOGLOBIN 13.9 g/dl (13.5-17.5); MEAN CORPUSCULAR HEMOGLOBIN 29.5 pg (27.0-33.0); MEAN CORPUSCULAR HGB CONC 31.4 g/dl (32.0-36.5); MEAN CORPUSCULAR VOLUME 94.1 fl (80.0-96.0); PLATELET COUNT, AUTOMATED 195 10^3/uL (150-450); RED BLOOD COUNT 4.71 10^6/uL (4.30-6.10); WHITE BLOOD COUNT 9.4 10^3/uL (4.0-10.0)
[2023-02-09 06:19] LABS: ALBUMIN 3.9 G/DL (3.2-5.2); ALKALINE PHOSPHATASE 52 U/L (46-116); ALT/SGPT 21 U/L (7.0-40); AST/SGOT 27 U/L (<34); BILIRUBIN,TOTAL 0.6 MG/DL (0.3-1.2); BLOOD UREA NITROGEN 38 MG/DL (9-23); CARBON DIOXIDE LEVEL 31 MMOL/L (20-31); CHLORIDE LEVEL 102 MMOL/L (98-107); CREATININE FOR GFR 0.91 MG/DL (0.70-1.30); GLOMERULAR FILTRATION RATE > 60.0 (>42); GLUCOSE, FASTING 84 MG/DL (74-106); POTASSIUM SERUM 3.5 MMOL/L (3.5-5.1); SODIUM LEVEL 138 MMOL/L (136-145); TOTAL PROTEIN 6.9 G/DL (5.7-8.2)
[2023-02-09] MEDS: BUDESONIDE 0.5 MG/2 ML INHALATION SUSPENSION INH SCH (07:24)
[2023-02-09] MEDS ORDERED: predniSONE 20 MG TAB PO SCH (09:00)
[2023-02-09] MEDS: ENOXAPARIN 60MG/0.6ML SYRINGE (J1650 PER 10MG) SC SCH ×2 (09:00→09:28)
[2023-02-09] MEDS ORDERED: LASI40TA9 PO (09:02)
[2023-02-09] MEDS ORDERED: PRED20TA PO (09:02)
[2023-02-09] MEDS: traMADol 50 MG TAB PO SCH (09:27)
[2023-02-09] MEDS: SERTRALINE 100 MG TAB PO SCH (09:28)
[2023-02-09] MEDS: ACETAMINOPHEN 500 MG TAB PO SCH (09:28)
[2023-02-09] MEDS: ASPIRIN 81MG ENTERIC TABLET PO SCH (09:28)
== END 2023-02-09 11:04 | disposition home or self-care (01) | DRG 291 ==
LOC: M ED 10:42 → M ED INP 14:08 → ENRESERV 15:28 → M MSPAV 16:20
PROVIDERS: ADMIT Internal Medicine; ATTEND Internal Medicine
PROC: B246ZZZ Ultrasonography of Right and Left Heart (ICD-10-PCS; principal; 2023-02-09)
DX: I11.0 Hypertensive heart disease with heart failure (principal); J96.01 Acute respiratory failure with hypoxia; I50.33 Acute on chronic diastolic (congestive) heart failure; J44.1 Chronic obstructive pulmonary disease with (acute) exacerbation; Z68.43 Body mass index [BMI] 50.0-59.9, adult; G47.33 Obstructive sleep apnea (adult) (pediatric); E04.1 Nontoxic single thyroid nodule; F39 Unspecified mood [affective] disorder; R91.1 Solitary pulmonary nodule; F17.200 Nicotine dependence, unspecified, uncomplicated; E78.5 Hyperlipidemia, unspecified; N40.0 Benign prostatic hyperplasia without lower urinary tract symptoms; I27.81 Cor pulmonale (chronic); R73.03 Prediabetes; E29.1 Testicular hypofunction; N52.9 Male erectile dysfunction, unspecified; E66.9 Obesity, unspecified; Z90.49 Acquired absence of other specified parts of digestive tract; Z96.649 Presence of unspecified artificial hip joint; Z79.82 Long term (current) use of aspirin; Z79.899 Other long term (current) drug therapy; Z88.0 Allergy status to penicillin; Z88.8 Allergy status to other drugs, medicaments and biological substances; Z91.040 Latex allergy status

== ENCOUNTER → 2023-04-19 | Outpatient (REF) | payer MEDICARE ==
[~2023-04-19] MED LIST changes: +ACET-839 PO; +ACET500T15 PO; +ASPI81TA26 PO; +ERGO500029 PO; +LASI40TA9 PO; +MIRT-88 PO; +PRED20TA PO; +TAMS1CAP17 PO; +ZOLO100T PO
[2023-04-19 13:40] LABS: HEMATOCRIT 44.1 % (42.0-52.0); HEMOGLOBIN 13.6 g/dl (13.5-17.5); MEAN CORPUSCULAR HEMOGLOBIN 28.9 pg (27.0-33.0); MEAN CORPUSCULAR HGB CONC 30.8 g/dl (32.0-36.5); MEAN CORPUSCULAR VOLUME 93.8 fl (80.0-96.0); PLATELET COUNT, AUTOMATED 178 10^3/uL (150-450); WHITE BLOOD COUNT 5.1 10^3/uL (4.0-10.0)
[2023-04-19 13:56] LABS: HEMOGLOBIN A1c 5.1 % (4.0-6.0)
[2023-04-19 14:15] LABS: ALBUMIN 3.5 G/DL (3.2-5.2); ALKALINE PHOSPHATASE 64 U/L (46-116); ALT/SGPT 16 U/L (7.0-40); AST/SGOT 15 U/L (<34); BILIRUBIN,TOTAL 0.6 MG/DL (0.3-1.2); BLOOD UREA NITROGEN 18 MG/DL (9-23); CALCIUM LEVEL 9.4 MG/DL (8.3-10.6); CARBON DIOXIDE LEVEL 33 MMOL/L (20-31); CHLORIDE LEVEL 102 MMOL/L (98-107); CHOLESTEROL LEVEL 168 MG/DL (<200); CHOLESTEROL RISK RATIO 4.44 (<5); CREATININE FOR GFR 0.78 MG/DL (0.70-1.30); GLOMERULAR FILTRATION RATE > 60.0 (>42); GLUCOSE, FASTING 91 MG/DL (74-106); HDL CHOLESTEROL 37.8 MG/DL (>40); LDL CHOLESTEROL 108.2 MG/DL (<100); NON-HDL-C 130.2 MG/DL; POTASSIUM SERUM 4.2 MMOL/L (3.5-5.1); SODIUM LEVEL 143 MMOL/L (136-145); TOTAL PROTEIN 6.2 G/DL (5.7-8.2); TRIGLYCERIDES LEVEL 110 MG/DL (<150)
[2023-04-19 14:18] LABS: THYROID STIMULATING HORMONE 0.933 uIU/ML (0.55-4.78)
[2023-04-19 14:22] LABS: FREE T4 1.31 NG/DL (0.89-1.76)
== END ==
LOC: M SFHCADAM 07:51
PROVIDERS: ATTEND Family Medicine
DX: F32.9 Major depressive disorder, single episode, unspecified (principal); E78.2 Mixed hyperlipidemia; E74.9 Disorder of carbohydrate metabolism, unspecified; Z68.43 Body mass index [BMI] 50.0-59.9, adult; Z12.5 Encounter for screening for malignant neoplasm of prostate
CPT/HCPCS: 80053; 80061; 83036; 84439; 84443; 85027; G0103

== ENCOUNTER → 2023-10-25 | Outpatient (REF) | payer MEDICARE ==
[~2023-10-25] MED LIST changes: -ASPI-161 PO; +ASPI-615 PO
== END ==
LOC: M SFHCADAM 13:59
PROVIDERS: ATTEND Family Medicine
DX: K52.9 Noninfective gastroenteritis and colitis, unspecified (principal)

== ENCOUNTER → 2023-11-17 | Outpatient (CLI) | payer MEDICARE | LOC: M RAD 13:15 | PROVIDERS: ATTEND Family Medicine | DX: K86.81 Exocrine pancreatic insufficiency (principal); T56.891D Toxic effect of other metals, accidental (unintentional), subsequent encounter; T56.2X Toxic effects of chromium and its compounds; R16.1 Splenomegaly, not elsewhere classified; K76.0 Fatty (change of) liver, not elsewhere classified ==

== ENCOUNTER → 2024-02-06 | Outpatient (CLI) | payer MEDICARE | LOC: M RAD 09:33 | PROVIDERS: ATTEND Internal Medicine Pulmonary Disease | DX: Z87.891 Personal history of nicotine dependence (principal) ==

== ENCOUNTER → 2024-04-23 | Outpatient (REF) | payer MEDICARE ==
[2024-04-23 18:09] LABS: HEMOGLOBIN 13.5 g/dl (13.5-17.5); MEAN CORPUSCULAR HEMOGLOBIN 29.7 pg (27.0-33.0); MEAN CORPUSCULAR HGB CONC 32.1 g/dl (32.0-36.5); MEAN CORPUSCULAR VOLUME 92.3 fl (80.0-96.0); PLATELET COUNT, AUTOMATED 199 10^3/uL (150-450); RED BLOOD COUNT 4.55 10^6/uL (4.30-6.10)
[2024-04-23 18:10] LABS: APPEARANCE, URINE TURBID (CLEAR); BACTERIA, URINE AUTO NEGATIVE (NEGATIVE); BILIRUBIN, URINE AUTO NEGATIVE (NEGATIVE); BLOOD, URINE BLOOD 3+ (NEGATIVE); CALCIUM OXALATE CRYSTALS MODERATE; COLOR, URINE AMBER (YELLOW); GLUCOSE, URINE (UA) AUTO NEGATIVE (NEGATIVE); KETONE, URINE AUTO NEGATIVE (NEGATIVE); LEUKOCYTE ESTERASE, URINE AUTO 1+ (NEGATIVE); MUCUS, URINE LARGE (NEGATIVE); NITRITE, URINE AUTO NEGATIVE (NEGATIVE); PROTEIN, URINE AUTO 1+ mg/dL (NEGATIVE); RBC, URINE AUTO 0 /HPF (0-3); SPECIFIC GRAVITY URINE AUTO 1.025 (1.002-1.035); SQUAMOUS EPITHELIAL CELL UR AU 1 /HPF (0-6); UROBILINOGEN, URINE AUTO 0.2 mg/dL (0.0-2.0); WBC, URINE AUTO 10 /HPF (0-3)
[2024-04-23 18:32] LABS: PSA SCREENING 3.39 NG/ML (< 4.00)
[2024-04-23 18:33] LABS: ALBUMIN 3.2 G/DL (3.2-5.2); ALKALINE PHOSPHATASE 71 U/L (46-116); ALT/SGPT 14 U/L (7.0-40); AST/SGOT 13 U/L (<34); BILIRUBIN,TOTAL 0.4 MG/DL (0.3-1.2); BLOOD UREA NITROGEN 20 MG/DL (9-23); CALCIUM LEVEL 9.4 MG/DL (8.3-10.6); CARBON DIOXIDE LEVEL 30 MMOL/L (20-31); CHLORIDE LEVEL 107 MMOL/L (98-107); CHOLESTEROL LEVEL 140 MG/DL (<200); CHOLESTEROL RISK RATIO 4.87 (<5); CREATININE FOR GFR 0.67 MG/DL (0.70-1.30); GLOMERULAR FILTRATION RATE > 60.0 (>42); GLUCOSE, FASTING 87 MG/DL (74-106); HDL CHOLESTEROL 28.7 MG/DL (>40); LDL CHOLESTEROL 88.5 MG/DL (<100); NON-HDL-C 111.3 MG/DL; SODIUM LEVEL 142 MMOL/L (136-145); TOTAL PROTEIN 6.3 G/DL (5.7-8.2); TRIGLYCERIDES LEVEL 114 MG/DL (<150)
[2024-04-23 18:36] LABS: FREE T4 1.35 NG/DL (0.89-1.76); THYROID STIMULATING HORMONE 0.627 uIU/ML (0.55-4.78)
== END ==
LOC: M SFHCADAM 12:00
PROVIDERS: ATTEND Family Medicine
DX: K52.9 Noninfective gastroenteritis and colitis, unspecified (principal); I11.9 Hypertensive heart disease without heart failure; E78.2 Mixed hyperlipidemia; E74.9 Disorder of carbohydrate metabolism, unspecified; Z12.5 Encounter for screening for malignant neoplasm of prostate; R39.198 Other difficulties with micturition; Z79.899 Other long term (current) drug therapy
CPT/HCPCS: 80053; 80061; 81001; 83036; 84439; 84443; 85027; 87086; G0103

== ENCOUNTER → 2024-06-11 | Outpatient (REF) | payer MEDICARE | LOC: M LABDRWAD 17:39 | PROVIDERS: ATTEND Orthopaedic Surgery Adult Reconstructive Orthopaedic Surgery | DX: T56.2X Toxic effects of chromium and its compounds (principal) ==

== ENCOUNTER → 2024-08-02 | Outpatient (REF) | payer MEDICARE ==
[2024-08-02 12:58] LABS: ALBUMIN 3.5 G/DL (3.2-5.2); ALKALINE PHOSPHATASE 83 U/L (40-129); ALT/SGPT 16 U/L (7.0-40); AST/SGOT 16 U/L (<34); BILIRUBIN,TOTAL 0.5 MG/DL (0.3-1.2); BLOOD UREA NITROGEN 26 MG/DL (9-23); C REACTIVE PROTEIN QUANTITATIV < 0.50 MG/DL (<1.0); CALCIUM LEVEL 9.8 MG/DL (8.3-10.6); CARBON DIOXIDE LEVEL 28 MMOL/L (20-31); CHLORIDE LEVEL 102 MMOL/L (98-107); CREATININE FOR GFR 0.79 MG/DL (0.70-1.30); GLOMERULAR FILTRATION RATE > 60.0 (>42); GLUCOSE, FASTING 92 MG/DL (74-106); POTASSIUM SERUM 4.9 MMOL/L (3.5-5.1); SODIUM LEVEL 139 MMOL/L (136-145); TOTAL PROTEIN 7.1 G/DL (5.7-8.2)
[2024-08-02 13:02] LABS: HEMATOCRIT 44.2 % (42.0-52.0); HEMOGLOBIN 14.3 g/dl (13.5-17.5); MEAN CORPUSCULAR HEMOGLOBIN 29.4 pg (27.0-33.0); MEAN CORPUSCULAR HGB CONC 32.4 g/dl (32.0-36.5); MEAN CORPUSCULAR VOLUME 90.8 fl (80.0-96.0); PLATELET COUNT, AUTOMATED 177 10^3/uL (150-450); RED BLOOD COUNT 4.87 10^6/uL (4.30-6.10); TOTAL 25(OH) VITAMIN D 69.9 NG/ML (20.0-100.0); WHITE BLOOD COUNT 6.3 10^3/uL (4.0-10.0)
== END ==
LOC: M SFHCADAM 08:54
PROVIDERS: ATTEND Family Medicine
DX: M54.31 Sciatica, right side (principal); E55.9 Vitamin D deficiency, unspecified; I11.9 Hypertensive heart disease without heart failure; K86.81 Exocrine pancreatic insufficiency

== ENCOUNTER → 2024-08-02 | Outpatient (CLI) | payer MEDICARE | LOC: M ADAMS 08:58 | PROVIDERS: ATTEND Family Medicine | DX: M54.31 Sciatica, right side (principal) ==

== ENCOUNTER 2024-09-25 10:08 | Inpatient (IN) | payer MEDICARE ==
[~2024-09-25] VITALS: Ht 177.8 cm; Wt 150.0 kg
[2024-09-25 11:33] LABS: BASO % 0.2 % (0.0-1.0); EOS # 0.1 10^3/uL (0.0-0.5); EOS % 1.2 % (0.0-3.0); HEMATOCRIT 38.3 % (42.0-52.0); HEMOGLOBIN 12.5 g/dl (13.5-17.5); LYMPH # 1.3 10^3/uL (1.5-5.0); LYMPH % 23.3 % (24.0-44.0); MEAN CORPUSCULAR HEMOGLOBIN 29.5 pg (27.0-33.0); MEAN CORPUSCULAR HGB CONC 32.6 g/dl (32.0-36.5); MEAN CORPUSCULAR VOLUME 90.3 fl (80.0-96.0); MONO # 0.3 10^3/uL (0.0-0.8); MONO % 5.4 % (2.0-8.0); NEUTROPHILS % 69.2 % (36.0-66.0); PLATELET COUNT, AUTOMATED 185 10^3/uL (150-450); RED BLOOD COUNT 4.24 10^6/uL (4.30-6.10); WHITE BLOOD COUNT 5.8 10^3/uL (4.0-10.0)
[2024-09-25 12:17] LABS: ALBUMIN 3.1 G/DL (3.2-5.2); ALKALINE PHOSPHATASE 75 U/L (40-129); ALT/SGPT 16 U/L (7.0-40); AST/SGOT 20 U/L (<34); BILIRUBIN,DIRECT 0.3 MG/DL (<0.4); BILIRUBIN,TOTAL 0.7 MG/DL (0.3-1.2); BLOOD UREA NITROGEN 17 MG/DL (9-23); CALCIUM LEVEL 8.5 MG/DL (8.3-10.6); CARBON DIOXIDE LEVEL 30 MMOL/L (20-31); CHLORIDE LEVEL 101 MMOL/L (98-107); CREATININE FOR GFR 0.62 MG/DL (0.70-1.30); GLOMERULAR FILTRATION RATE > 60.0 (>42); GLUCOSE, FASTING 83 MG/DL (74-106); POTASSIUM SERUM 3.8 MMOL/L (3.5-5.1); SODIUM LEVEL 141 MMOL/L (136-145); TOTAL PROTEIN 6.5 G/DL (5.7-8.2)
[2024-09-25] MEDS: dexAMETHasone 20MG/5ML VIAL IV ONE (14:25)
[2024-09-25] MEDS: COMBIVENT RESPIMAT 100-20MCG INHALER 4GM INH SCH ×2 (14:48→16:12)
[2024-09-25] MEDS ORDERED: BUDE0.5S6 NEB (15:07)
[2024-09-25] MEDS ORDERED: HOME MED LIST COMPLETE! XX SCH (15:10)
[2024-09-25] MEDS ORDERED: MOM 30ML SUSPENSION UDC PO PRN (15:20)
[2024-09-25] MEDS ORDERED: ACETAMINOPHEN 325 MG TAB PO PRN (15:20)
[2024-09-25] MEDS ORDERED: ISOVUE-370 76% 100ML VIAL As Ordered ONE (15:21)
[2024-09-25] MEDS ORDERED: BUDESONIDE 0.5 MG/2 ML INHALATION SUSPENSION NEB PRN (15:30)
[2024-09-25 15:58] LABS: VENOUS HCO3 31.3 MMOL/L (23.0-27.0); VENOUS O2 SATURATION 60.2 % (60.0-80.0); VENOUS PARTIAL PRESSURE CO2 58.7 mmHg (38.0-50.0); VENOUS PARTIAL PRESSURE O2 30.6 mmHg (30.0-50.0); VENOUS PH 7.345 UNITS (7.330-7.430); VENOUS STANDARD HCO3 27.1 MMOL/L; VENOUS TOTAL CO2 33.1 MMOL/L (24.0-28.0)
[2024-09-25 16:17] LABS: PARTIAL THROMBOPLASTIN TIME 28.7 SECONDS (24.8-34.2); PROTHROMBIN TIME 13.5 SECONDS (12.5-14.5)
[2024-09-25 16:27] LABS: C REACTIVE PROTEIN QUANTITATIV 3.58 MG/DL (<1.0)
[2024-09-25 16:34] LABS: PROCALCITONIN 0.07 ng/ml
[2024-09-25] MEDS: REMDESIVIR 200 MG in NS 250 ML IV ONE (18:40)
[2024-09-25] MEDS: RIVAROXABAN 10MG TAB (XARELTO) PO SCH (18:40)
[2024-09-25 20:24] VITALS: BP 145/71; TEMP 97; O2SAT 93
[2024-09-25 22:00] VITALS: O2SAT 3; O2SAT 93
[2024-09-25] MEDS: DOCUSATE SODIUM 100MG CAPSULE PO SCH (22:03)
[2024-09-25] MEDS: MIRTAZAPINE 15 MG TAB PO SCH (22:03)
[2024-09-25] MEDS: traMADol 50 MG TAB PO SCH (22:04)
[2024-09-25] MEDS: TAMSULOSIN 0.4 MG CAP PO SCH (22:04)
[2024-09-25] MEDS: ACETAMINOPHEN 500 MG TAB PO SCH (22:05)
[2024-09-25] MEDS: SERTRALINE 100 MG TAB PO SCH (22:05)
[2024-09-26 04:00] VITALS: BP 157/80; TEMP 97.2; O2SAT 93
[2024-09-26 04:31] VITALS: O2SAT 91
[2024-09-26 05:58] LABS: HEMOGLOBIN 12.3 g/dl (13.5-17.5); MEAN CORPUSCULAR HEMOGLOBIN 28.9 pg (27.0-33.0); MEAN CORPUSCULAR HGB CONC 32.4 g/dl (32.0-36.5); MEAN CORPUSCULAR VOLUME 89.2 fl (80.0-96.0); PLATELET COUNT, AUTOMATED 206 10^3/uL (150-450); RED BLOOD COUNT 4.26 10^6/uL (4.30-6.10); WHITE BLOOD COUNT 4.2 10^3/uL (4.0-10.0)
[2024-09-26 06:45] LABS: BLOOD UREA NITROGEN 18 MG/DL (9-23); CALCIUM LEVEL 9.2 MG/DL (8.3-10.6); CARBON DIOXIDE LEVEL 28 MMOL/L (20-31); CHLORIDE LEVEL 104 MMOL/L (98-107); CREATININE FOR GFR 0.58 MG/DL (0.70-1.30); GLOMERULAR FILTRATION RATE > 60.0 (>42); GLUCOSE, FASTING 116 MG/DL (74-106); POTASSIUM SERUM 4.3 MMOL/L (3.5-5.1); SODIUM LEVEL 141 MMOL/L (136-145)
[2024-09-26] MEDS ORDERED: ENOXAPARIN 40MG/0.4ML SYRINGE (J1650 PER 10MG) SC SCH (09:00)
[2024-09-26] MEDS: ASPIRIN 81MG ENTERIC TABLET PO SCH (09:45)
[2024-09-26] MEDS: ACETAMINOPHEN 500 MG TAB PO SCH (09:45)
[2024-09-26 12:00] VITALS: BP 126/69; TEMP 98.1; O2SAT 89
[2024-09-26] MEDS: REMDESIVIR 100 MG in NS 100 ML IV SCH (17:33)
[2024-09-26 21:05] VITALS: BP 140/73; TEMP 98.1; O2SAT 91
[2024-09-27 04:30] VITALS: BP 129/81; TEMP 97.7; O2SAT 93
[2024-09-27 06:07] LABS: HEMOGLOBIN 12.3 g/dl (13.5-17.5); MEAN CORPUSCULAR HEMOGLOBIN 28.9 pg (27.0-33.0); MEAN CORPUSCULAR HGB CONC 32.4 g/dl (32.0-36.5); MEAN CORPUSCULAR VOLUME 89.4 fl (80.0-96.0); PLATELET COUNT, AUTOMATED 225 10^3/uL (150-450); RED BLOOD COUNT 4.25 10^6/uL (4.30-6.10); WHITE BLOOD COUNT 6.5 10^3/uL (4.0-10.0)
[2024-09-27 06:22] LABS: BLOOD UREA NITROGEN 23 MG/DL (9-23); CALCIUM LEVEL 9.2 MG/DL (8.3-10.6); CARBON DIOXIDE LEVEL 29 MMOL/L (20-31); CHLORIDE LEVEL 106 MMOL/L (98-107); CREATININE FOR GFR 0.66 MG/DL (0.70-1.30); GLOMERULAR FILTRATION RATE > 60.0 (>42); GLUCOSE, FASTING 94 MG/DL (74-106); POTASSIUM SERUM 3.8 MMOL/L (3.5-5.1); SODIUM LEVEL 143 MMOL/L (136-145)
[2024-09-27 08:54] VITALS: BP 87/61
[2024-09-27 12:00] VITALS: BP 142/62; TEMP 97.7; O2SAT 93
[2024-09-27] MEDS ORDERED: PRED10TA2 PO (14:07)
[2024-09-27] MEDS ORDERED: NIRM1TAB14 PO (14:07)
[2024-09-27] MEDS ORDERED: METO25TA PO (14:09)
[2024-09-27] MEDS ORDERED: PRED20TA PO (14:09)
[2024-09-27] MEDS ORDERED: ALBU8.5H INH (14:09)
[2024-09-27] MEDS ORDERED: DOXY-440 PO (14:09)
[2024-09-28] MEDS ORDERED: VITAMIN D 50,000 UNITS CAPSULE (ERGOCALCIFEROL 1.25MG) PO SCH (09:00)
== END 2024-09-27 16:17 | disposition home health service (06) | DRG 178 ==
LOC: EDBD 10:08 → M ED 10:08 → M ED INP 15:11 → M MSPAV 20:06
PROVIDERS: ADMIT Student in an Organized Health Care Education/Training Program; ATTEND General Practice
DX: U07.1 COVID-19 (principal); J96.11 Chronic respiratory failure with hypoxia; K86.1 Other chronic pancreatitis; E66.2 Morbid (severe) obesity with alveolar hypoventilation; Z68.41 Body mass index [BMI] 40.0-44.9, adult; J44.9 Chronic obstructive pulmonary disease, unspecified; E04.1 Nontoxic single thyroid nodule; I10 Essential (primary) hypertension; E78.5 Hyperlipidemia, unspecified; N40.0 Benign prostatic hyperplasia without lower urinary tract symptoms; R73.03 Prediabetes; N52.9 Male erectile dysfunction, unspecified; M54.50 Low back pain, unspecified; F17.200 Nicotine dependence, unspecified, uncomplicated; K57.90 Diverticulosis of intestine, part unspecified, without perforation or abscess without bleeding; Z90.49 Acquired absence of other specified parts of digestive tract; G89.29 Other chronic pain; M54.9 Dorsalgia, unspecified; F32.A Depression, unspecified; Z88.0 Allergy status to penicillin; Z88.8 Allergy status to other drugs, medicaments and biological substances; Z91.040 Latex allergy status; Z79.82 Long term (current) use of aspirin; Z79.891 Long term (current) use of opiate analgesic; Z79.899 Other long term (current) drug therapy; Z99.81 Dependence on supplemental oxygen

== ENCOUNTER → 2024-10-10 | Outpatient (REF) | payer MEDICARE ==
[~2024-10-10] MED LIST changes: +ALBU8.5H INH; +BUDE0.5S6 NEB; +DOXY-440 PO; +METO25TA PO; +NIRM1TAB14 PO
[2024-10-10 18:49] LABS: ALBUMIN 3.5 G/DL (3.2-5.2); ALKALINE PHOSPHATASE 68 U/L (40-129); ALT/SGPT 41 U/L (7.0-40); AST/SGOT 23 U/L (<34); BILIRUBIN,TOTAL 0.5 MG/DL (0.3-1.2); BLOOD UREA NITROGEN 21 MG/DL (9-23); CALCIUM LEVEL 9.4 MG/DL (8.3-10.6); CARBON DIOXIDE LEVEL 29 MMOL/L (20-31); CHLORIDE LEVEL 100 MMOL/L (98-107); GLOMERULAR FILTRATION RATE > 60.0 (>42); GLUCOSE, FASTING 93 MG/DL (74-106); POTASSIUM SERUM 4.3 MMOL/L (3.5-5.1); SODIUM LEVEL 136 MMOL/L (136-145); TOTAL PROTEIN 6.8 G/DL (5.7-8.2)
[2024-10-10 18:52] LABS: FREE T4 1.45 NG/DL (0.89-1.76)
[2024-10-10 18:53] LABS: THYROID STIMULATING HORMONE 0.682 uIU/ML (0.55-4.78)
[2024-10-10 19:01] LABS: BASO % 0.2 % (0.0-1.0); EOS # 0.1 10^3/uL (0.0-0.5); EOS % 0.5 % (0.0-3.0); HEMATOCRIT 43.4 % (42.0-52.0); HEMOGLOBIN 14.1 g/dl (13.5-17.5); LYMPH # 2.3 10^3/uL (1.5-5.0); LYMPH % 22.5 % (24.0-44.0); MEAN CORPUSCULAR HGB CONC 32.5 g/dl (32.0-36.5); MEAN CORPUSCULAR VOLUME 92.3 fl (80.0-96.0); MONO # 0.7 10^3/uL (0.0-0.8); MONO % 6.4 % (2.0-8.0); NEUTROPHILS # 7.2 10^3/uL (1.5-8.5); NEUTROPHILS % 69.9 % (36.0-66.0); PLATELET COUNT, AUTOMATED 177 10^3/uL (150-450); WHITE BLOOD COUNT 10.2 10^3/uL (4.0-10.0)
== END ==
LOC: M SFHCADAM 11:03
PROVIDERS: ATTEND Physician Assistant
DX: I11.9 Hypertensive heart disease without heart failure (principal)

== ENCOUNTER → 2025-05-22 | Outpatient (REF) | payer MEDICARE ==
[~2025-05-22] MED LIST changes: -NIRM1TAB14 PO; +NIRM1TAB16 PO
[2025-05-22 14:50] LABS: CALCIUM LEVEL 9.1 MG/DL (8.3-10.6); CARBON DIOXIDE LEVEL 33 MMOL/L (20-31); CHLORIDE LEVEL 104 MMOL/L (98-107); CREATININE FOR GFR 0.74 MG/DL (0.70-1.30); GLOMERULAR FILTRATION RATE > 90.0 (>42); POTASSIUM SERUM 4.3 MMOL/L (3.5-5.1); SODIUM LEVEL 145 MMOL/L (136-145)
== END ==
LOC: M SFHCADAM 08:32
PROVIDERS: ATTEND Family Medicine
DX: M54.31 Sciatica, right side (principal)